=== PATIENT | male | born 1960 | race African-American/Black ===

== ENCOUNTER 2016-12-21 13:05 | Inpatient (IN) ==
[2016-12-21] MEDS ORDERED: FLUMAZENIL 0.5 MG/5 ML VIAL IV ONE (13:27)
[2016-12-21] MEDS ORDERED: NALOXONE 0.4 MG/ML VIAL ONE (13:27)
[2016-12-21] MEDS ORDERED: SODIUM CHLORIDE 0.9% 500 ML IV STA (13:47)
--- NOTE | 2016-12-21 13:52 | EKG Report ---
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
[2016-12-21 13:58] LABS: Basophils % 0.2 % (0.0-0.8); Eosinophils % 0.3 % (0.00-10.9); Hematocrit 39.9 VOL% (42.0-52.0); Immature Granulocytes % 1.7 %; Immature Granulocytes Absolute 0.16 #; Lymphocytes # 1.6 10*3/uL (1.4-4.0); Lymphocytes % 16.9 % (21.2-54.2); Mean Corpuscular HGB Conc 32.6 GM/DL (32-36); Mean Corpuscular Hemoglobin 28 PG (27-34); Mean Corpuscular Volume 87.3 FL (87-102); Monocytes # 0.9 10*3/uL (0.11-0.8); Monocytes % 8.8 % (1.7-12.7); Neutrophils % 72.1 % (38.7-73.9); Platelet Count 402 T/CUMM (130-400); Red Blood Count 4.57 MC/CUMM (3.8-5.5); Red Cell Distribution Width 15.2 % (9.3-17.3); White Blood Count 9.7 T/CUMM (4-12)
[2016-12-21 14:03] LABS: Apearance,Urine CLEAR (Clear); Bacteria,Urine Occasional /HPF (Few); Bilirubin,Urine Negative (Negative); Blood, Urine Negative (Negative); Glucose,Urine (UA) Negative (Negative); Ketones,Urine 5 mg/dL (Negative); Mucus,Urine Occasional /LPF (Occasional); Nitrite,Urine Negative (Negative); Protein,Urine 100 MG/DL; RBC,Urine 2 /HPF (0-4); Squamous Epithelial Cell,Urine Occasional /HPF (0-10); Urine Color Yellow (Yellow); Urine Specific Gravity 1.016 (1.001-1.035); Urine Urobilinogen < 2.0 EU/DL (0.2-1.0); WBC,Urine 3 /HPF (0-6)
[2016-12-21 14:09] LABS: Alanine Aminotransferase 43 U/L (16-61); Alkaline Phosphatase 100 U/L (45-117); Aspartate Amino Transferase 28 U/L (0-37); Barbiturates Screen,Urine Negative (Negative); Benzodiazepines Screen,Urine Negative (Negative); Calcium 8.6 MG/DL (8.5-10.1); Cannabinoid Screen,Urine Negative (Negative); Opiate Screen,Urine Negative (Negative); Phencyclidine Screen,Urine Negative (Negative)
[2016-12-21 14:10] LABS: Albumin 3.2 G/DL (3.4-5.0); Bilirubin,Total < 0.39 MG/DL (0.2-1.0); Blood Urea Nitrogen 11 MG/DL (7-18); Glucose 122 MG/DL (74-106); Osmolality,Calculated 276.5 MOS/KG (273-304); Potassium 4.5 MMOL/L (3.5-5.1); Sodium 139 MMOL/L (136-145); Total Protein 6.8 G/DL (6.4-8.3); Troponin I Only < 0.015 NG/ML (0.00-0.045)
--- NOTE | 2016-12-21 14:11 | XRay Report ---
XR chest 1V portable Indication: Tube placement Comparison: 21 December 2016 Findings: The heart and mediastinum are normal in size and configuration. Endotracheal tube tip is at the clavicle level. The pulmonary vascularity is normal in caliber. No lung infiltrates, effusions, pneumothorax or other abnormality is demonstrated. Impression: Endotracheal tube appears in good position. No other abnormality seen. PROCEDURE INTERPRETED AT [facility] DEPARTMENT OF RADIOLOGY Final Report Signed by: Dr. Lasha Le
[2016-12-21] MEDS ORDERED: ALBUTEROL 2.5 MG/3 ML NEB RESP TX PRN (14:15)
[2016-12-21] MEDS ORDERED: ONDANSETRON 4 MG/2 ML VIAL IV PRN (14:15)
[2016-12-21] MEDS ORDERED: VECURONIUM 10 MG VIAL IV ONE ×2 (14:18→14:46)
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
--- NOTE | 2016-12-21 14:31 | XRay Report ---
XR chest 1V portable Indication: NG tube placement At 1:40 PM Comparison: 21 December 2016 Findings: The heart and mediastinum are stable in size and configuration. Endotracheal tube is unchanged in position. NG tube is been added and tip overlies the left upper quadrant. The pulmonary vascularity is normal in caliber. No lung infiltrates, effusions, pneumothorax or other abnormality is demonstrated. Impression: Addition of NG tube, appears in good position. No other significant changes. PROCEDURE INTERPRETED AT [facility] DEPARTMENT OF RADIOLOGY Final Report Signed by: Dr. Lasha Le
[2016-12-21 14:34] LABS: ABG Base Excess 1.1 MMOL/L (-2.5-2.5); ABG HCO3 27.7 MMOL/L (20-26); ABG Oxygen Saturation 99.6 % (95-100); ABG PCO2 52.1 MM HG (35-48); ABG PH 7.343 (7.35-7.45); ABG PO2 580.6 MM HG (80-95); ABG TCO2 29.3 MMOL/L (23-27)
--- NOTE | 2016-12-21 14:34 | CT Report ---
CT cervical spine Indication: Unconscious, altered mental status Comparison: None available Technique: Axial CT imaging of the cervical spine is performed without contrast. Computer reformatting is viewed in the sagittal and coronal planes. Findings: No fracture is seen. Alignment of the cervical spine is within normal limits. Vertebral body heights are normal. There is extensive ossification of the posterior longitudinal ligament from C2 use through C3. This is contributing to severe central canal stenosis slightly worse in the left paracentral location and deforming the spinal cord. No other abnormality is demonstrated. 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 No evidence of acute findings. This CT exam was performed using one or more the following dose reduction techniques: Automated exposure control, adjustment of the MA and/or KV according to patient size, or use of iterative reconstruction technique. PROCEDURE INTERPRETED AT [facility] DEPARTMENT OF RADIOLOGY Final Report Signed by: Dr. Lasha Le
[2016-12-21 14:38] LABS: Ammonia 74 UMOL/L (11-32)
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
[2016-12-21] MEDS ORDERED: VECURONIUM 10 MG VIAL IV STA (14:39)
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
[2016-12-21 14:54] LABS: Lactic Acid 1.9 MMOL/L (0.4-2.0)
[2016-12-21 15:01] LABS: Risk Ratio 3.61; Thyroid Stimulating Hormone 1.27 uIU/ml (0.358-3.74); VLDL CHOLESTEROL 32.2 MG/DL
[2016-12-21] MEDS ORDERED: MIDAZOLAM 2 MG/2 ML VIAL ONE (15:27)
[2016-12-21] MEDS ORDERED: MORPHINE 2 MG/1 ML SYRINGE IV PRN (15:32)
[2016-12-21] MEDS ORDERED: LORazepam 2 MG/1 ML VIAL IV PRN (15:32)
[2016-12-21] MEDS ORDERED: PROPOFOL 1,000 MG/100 ML BOTTLE IV ONE (15:39)
[2016-12-21] MEDS: SODIUM CHLORIDE 0.9% 1,000 ML IV SCH (15:44)
[2016-12-21] MEDS ORDERED: ETOMIDATE 20 MG/10 ML VIAL IV ONE (16:06)
[2016-12-21] MEDS ORDERED: MIDAZOLAM 2 MG/2 ML VIAL IV ONE (16:07)
[2016-12-21] MEDS: PANTOPRAZOLE 40 MG VIAL IV SCH (16:20)
[2016-12-21] MEDS: PROPOFOL 1,000 MG/100 ML BOTTLE IV SCH ×2 (16:24→22:31)
[2016-12-21] MEDS ORDERED: DEXTROSE 50% 25 GM/50 ML VIAL IV PRN (16:29)
[2016-12-21] MEDS ORDERED: GLUCAGON 1 MG VIAL IM PRN (16:29)
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
[2016-12-21] MEDS: INSULIN REGULAR 100 UNIT/ML SUBCUT SCH (18:37)
[2016-12-21 19:57] LABS: ABG Base Excess -0.1 MMOL/L (-2.5-2.5); ABG HCO3 25.5 MMOL/L (20-26); ABG Oxygen Saturation 98.7 % (95-100); ABG PCO2 45.4 MM HG (35-48); ABG PH 7.367 (7.35-7.45); ABG PO2 164.1 MM HG (80-95); ABG TCO2 26.9 MMOL/L (23-27); Allen Test Positive; Pt O2 Delivery Device Ventilator
[2016-12-21] MEDS ORDERED: DIVALPROEX 500 MG TABLET PO SCH (21:00)
[2016-12-21] MEDS ORDERED: ENOXAPARIN 40 MG/0.4 ML SYRINGE SUBCUT SCH (21:00)
[2016-12-21] MEDS ORDERED: VALPROIC ACID 250 MG/5 ML UDCUP PO SCH (21:10)
[2016-12-21] MEDS: LACTULOSE 20 GM/30 ML UDCUP PO SCH (21:20)
[2016-12-22] MEDS: SODIUM CHLORIDE 0.9% 1,000 ML IV SCH ×2 (00:03→08:32)
[2016-12-22] MEDS: INSULIN REGULAR 100 UNIT/ML SUBCUT SCH ×3 (01:24→12:00)
[2016-12-22] MEDS: PROPOFOL 1,000 MG/100 ML BOTTLE IV SCH (02:57)
[2016-12-22 03:21] LABS: ABG Base Excess 1.5 MMOL/L (-2.5-2.5); ABG HCO3 25.8 MMOL/L (20-26); ABG Oxygen Saturation 98.3 % (95-100); ABG PH 7.372 (7.35-7.45); ABG TCO2 24.4 MMOL/L (23-27); Allen Test Positive; Pt O2 Delivery Device Ventilator
[2016-12-22 05:46] LABS: Basophils % 0.3 % (0.0-0.8); Eosinophils # 0.1 10*3/uL (0.0-0.87); Eosinophils % 0.6 % (0.00-10.9); Hematocrit 34.7 VOL% (42.0-52.0); Hemoglobin 11.4 GM/DL (14.0-18.0); Immature Granulocytes % 0.6 %; Immature Granulocytes Absolute 0.05 #; Lymphocytes # 1.9 10*3/uL (1.4-4.0); Mean Corpuscular HGB Conc 32.9 GM/DL (32-36); Mean Corpuscular Hemoglobin 29 PG (27-34); Mean Corpuscular Volume 87.6 FL (87-102); Mean Platelet Volume 11.3 FL (9.6-12.0); Monocytes # 0.8 10*3/uL (0.11-0.8); Monocytes % 10.6 % (1.7-12.7); Neutrophils # 4.9 10*3/uL (1.4-7.4); Neutrophils % 63.9 % (38.7-73.9); Platelet Count 316 T/CUMM (130-400); Red Blood Count 3.96 MC/CUMM (3.8-5.5); Red Cell Distribution Width 15.5 % (9.3-17.3); White Blood Count 7.7 T/CUMM (4-12)
[2016-12-22 06:14] LABS: Ammonia 56 UMOL/L (11-32)
[2016-12-22 06:20] LABS: Phosphorous 3.2 MG/DL (2.5-4.9); Prealbumin 32.6 MG/DL (20-40)
[2016-12-22 06:24] LABS: ABG Base Excess 1.4 MMOL/L (-2.5-2.5); ABG HCO3 25.6 MMOL/L (20-26); ABG PCO2 55.1 MM HG (35-48); ABG PH 7.324 (7.35-7.45); ABG PO2 85.3 MM HG (80-95); ABG TCO2 25.4 MMOL/L (23-27); Allen Test Positive
--- NOTE | 2016-12-22 06:46 | Pulmonology Progress Note ---
Pulmonary - PN: Subj Interval history: 56-year-old black male came in with decreased level of consciousness felt to be due to smoking spice. Patient extubated himself overnight. Room air oxygen saturation 97% at present. He has some mild atelectasis in the right middle lobe on x-ray. No fever. His blood pressure is 160/120 pulse around 125. He is having some tremors. Probably needs some Ativan. Stable from pulmonary standpoint. I will sign off. Exam (Progress Note) - Constitutional Vitals: Period Temp Pulse Resp BP Sys/Ford Pulse Ox Last 24 Hr 96.6 F-99.0 F 57-105 12-21 89-151/55-110 99-100 Exam: Patient's alert and responsive. Blood pressure 160/120, pulse 125. Patient is tremulous. Pupils react. Throat clear. Neck supple no bruits. Chest sounds clear. Heart rapid rate normal rhythm no murmurs. Abdomen soft nontender. Extremities no clubbing cyanosis or edema. Calves nontender. Results - Labs CBC & BMP: 12/22/16 04:36 12/21/16 13:25 Lab Results: I have reviewed the past 24 hour labs - Diagnostic Findings Procedure: Chest x-ray: image reviewed by me (Platelike atelectasis in right middle lobe. Otherwise clear. Post extubation.) Assessment and Plan (1) Respiratory failure Status: Acute Assessment and plan: At present we will reduce his FiO2. His PO2 is over 500 on 100% oxygen. Will start weaning when we can let up on his sedation if he is not being combative. 12/22/2016 patient self extubated last night and looks okay on room air. Respiratory failure has resolved. Patient alert enough to defend airway. I will sign off the Current Visit: Yes (2) History of post traumatic stress disorder Status: Acute Assessment and plan: Do not know the details of this. 12/22/2016 needs some anti-anxiety medications. Current Visit: Yes (3) Airway compromise Status: Acute Assessment and plan: He was intubated in the emergency room because of airway compromise. 12/22/2016 patient alert and able to defend airway now. Current Visit: Yes (4) Altered mental status, unspecified Status: Acute Assessment and plan: Because of his decreased level of consciousness is not known for sure. Reportedly he had smoked spice. 12/22/2016 patient now alert. Current Visit: Yes
[2016-12-22 06:50] LABS: Alanine Aminotransferase 36 U/L (16-61); Albumin 2.6 G/DL (3.4-5.0); Alkaline Phosphatase 88 U/L (45-117); Aspartate Amino Transferase 24 U/L (0-37); Bilirubin,Total < 0.39 MG/DL (0.2-1.0); Blood Urea Nitrogen 8 MG/DL (7-18); Calcium 8.2 MG/DL (8.5-10.1); Glucose 106 MG/DL (74-106); Magnesium 2.2 MG/DL (1.8-2.4); Osmolality,Calculated 283.8 MOS/KG (273-304); Potassium 4.2 MMOL/L (3.5-5.1); Sodium 144 MMOL/L (136-145); Total Protein 5.8 G/DL (6.4-8.3)
--- NOTE | 2016-12-22 07:30 | XRay Report ---
Exam: XR chest 1V portable Date: 12/22/2016 4:00 AM Indication: Respiratory failure follow-up ventilator Comparison: 12/21/2016 Technical: AP Findings: A nasogastric tube traverses esophagus. Endotracheal tube faintly suggested at the mid clavicle area. Atrophy change present in the right base. Mid inspiratory chest was obtained. Mild borderline cardiac prominence with previous cholecystectomy clips present. Impression: 1. Increasing atelectatic change right base 2. Appearance of life support tubing PROCEDURE INTERPRETED AT [facility] DEPARTMENT OF RADIOLOGY Final Report Signed by: Dr. Eddie Bowen
[2016-12-22] MEDS ORDERED: DIVALPROEX 500 MG TABLET PO SCH (09:00)
[2016-12-22] MEDS: LACTULOSE 20 GM/30 ML UDCUP PO SCH (09:19)
[2016-12-22] MEDS ORDERED: HydrOXYzine PAMOATE 25 MG CAPSULE PO PRN (11:04)
[2016-12-22] MEDS ORDERED: traZODone 50 MG TABLET PO PRN (11:04)
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
[2016-12-22] MEDS: PANTOPRAZOLE 40 MG VIAL IV SCH (14:37)
[2016-12-22] MEDS ORDERED: PNEUMOCOCCAL VACCINE (23 VALENT) 0.5 ML VIAL IM ONE (16:00)
[2016-12-22 16:16] VITALS: BP 186/109
[2016-12-22] MEDS ORDERED: amLODIPine 10 MG TABLET PO ONE (16:45)
[2016-12-22] MEDS ORDERED: LISINOPRIL 20 MG TABLET PO ONE (16:46)
[2016-12-22] MEDS ORDERED: OLANZapine 5 MG TABLET PO SCH (21:00)
[2016-12-23] MEDS ORDERED: amLODIPine 10 MG TABLET PO SCH (09:00)
[2016-12-23] MEDS ORDERED: LISINOPRIL 20 MG TABLET PO SCH (09:00)
--- NOTE | 2016-12-23 09:06 | Physician Query Form ---
CLICK EDIT DOCUMENT TO SELECT QUERY ANSWER --> OK --> SIGN Carla Ohara RN, CCDS Certified Clinical Milk Collector W) [phone] (f) [phone] [email or web address] PROVIDERS: Make your selection(s) from the choices in EACH section by typing an "x" and enter comments in the comment section. Please use your independent medical judgment in providing your response. This request does not imply that any particular answer is desired or expected. CLINICAL INDICATORS: (Providers should not edit this section) The medical record indicates that the patient was admitted with "spice ingestion ", "airway compromise", "respiratory failure", "subsequent elective intubation for airway protection" and "Patient extubated himself overnight". Based on the above, could you clarify the appropriate diagnosis, if significant , that supports the above abnormalities and additional evaluation, monitoring, and/or treatment rendered: ( ) Intubated for respiratory failure ( x) Intubated for airway protection ( ) Intubated for airway protection and respiratory failure -- both ( ) Other, please specify: ( ) Clinically unable to determine COMMENTS: PLEASE ALSO DOCUMENT RESPONSE IN PROGRESS NOTES AND/OR DISCHARGE SUMMARY Use of terms such as suspected, likely, or probable (associated with a specific diagnosis that is being evaluated, monitored, or treated as if it exists) are acceptable and can be restated in the discharge summary if not ruled out. MTDD
== END 2016-12-22 17:43 | disposition left against medical advice (07) | DRG 812 ==
LOC: EDBD → N.ED 13:05 → N.EDINP 14:15 → N.ICU 15:51 → N.4E 12-22 13:55
PROVIDERS: ADMIT Internal Medicine; ATTEND Internal Medicine